=== PATIENT | female | born 1990 | race Caucasian/White ===

== ENCOUNTER 2017-11-02 15:24 | Emergency (ER) | payer BC ==
[~2017-11-02] VITALS: Ht 182.9 cm; Wt 63.5 kg
[~2017-11-02 15:24] MED LIST: ALPR0.5T7; CITA40TA11; DEXT30TA12; HYDR-34; LISD30CA PO; METR500T PO; QUET50TA55
--- NOTE | 2017-11-02 17:08 | ED Integumentary General ---
General Stated Complaint: R ARM SPIDER BITE History of Present Illness Date Seen by Provider: Nov 02, 2017 Time Seen by Provider: 17:02 Initial Comments The patient is a 27-year-old female who presents with complaints of bites over her entire body and an area in the right arm which has drained past. She states that a week ago or so she stayed over night at friends. She believes that they had bed bugs as she became covered with tiny extremely itchy skin eruptions she then developed an area and over her right distal deltoid which was quite tender and red and last night opened with pus emptying. Timing/Duration: yesterday Severity: moderate Possible Cause: insect bite Allergies and Home Medications Allergies Coded Allergies: No Known Drug Allergies (Unverified , 01/31/10) Patient Home Medication List Home Medication List Reviewed: Yes Constitutional: see HPI EENTM: no symptoms reported Respiratory: no symptoms reported Cardiovascular: no symptoms reported Gastrointestinal: no symptoms reported Genitourinary: no symptoms reported Musculoskeletal: no symptoms reported Skin: see HPI Psychiatric/Neurological: No Symptoms Reported Endocrine: No Symptoms Reported Hematologic/Lymphatic: No Symptoms Reported Past Blwzlfr-Yfgfzu-Vuzryv Hx Patient Social History Recent Foreign Travel: No Contact w/Someone Who Travel: No Recent Hopitalizations: No Immunizations Up To Date Tetanus Booster (TDap): Less than 5yrs Seasonal Allergies Seasonal Allergies: No Past Medical History Orthopedic Back Injury, Chronic Back Pain ADD/ADHD, Anxiety Adverse Reaction/Blood Tranf: No Family Medical History Diabetes Physical Exam Vital Signs Capillary Refill : General Appearance: mild distress HEENT: normal ENT inspection Neck: non-tender, full range of motion, supple, normal inspection Cardiovascular: normal peripheral pulses, regular rate, rhythm, no edema, no gallop, no JVD, no murmur Respiratory: chest non-tender, lungs clear, normal breath sounds, no respiratory distress, no accessory muscle use Gastrointestinal: normal bowel sounds Comments There are multiple punctate apparent insect bites over all extremities belly and back. The area of greatest interest is at the distal border of the right deltoid. This has not all of sized subcutaneous tender fluctuant nodule and a tight eschar Procedures/Interventions Suture Size: 3-0 Departure Communication (Admissions) The area at the distal border of the right deltoid was prepped with Hibiclens and opened with a 22-gauge needle. The eschar was quite tenacious but ultimately dislodged. A large drop of purulent material was obtained and cultured. Impression Primary Impression: skin abscess/likely MRSA Disposition: HOME, SELF-CARE Condition: Stable/Unchanged Departure-Patient Inst. Decision time for Depature: 17:08 Referrals: NO,LOCAL PHYSICIAN (PCP) Primary Care Physician Add. Discharge Instructions: Keep skin clean and dry. Acquire Bactrim and begin using tonight. Try not to scratch. Scripts Sulfamethoxazole/Trimethoprim (Bactrim Ds Tablet) 1 Each Tablet 1 EACH PO twice a day, #14 TAB Prov: OLU ATKINSON MD 11/02/17 OLU ATKINSON MD Nov 02, 2017 17:08
[2017-11-02 17:09] VITALS: BP 141/80
[2017-11-02] MEDS ORDERED: SULF1TAB35 PO (17:09)
== END 2017-11-02 17:20 | disposition home or self-care (01) ==
LOC: EDUNIT# 15:24 → ER 15:26
DX: L02.413 Cutaneous abscess of right upper limb (principal); F90.9 Attention-deficit hyperactivity disorder, unspecified type; F41.9 Anxiety disorder, unspecified
CPT/HCPCS: 87070; 87077; 87186; 87205; 99283